=== PATIENT | female | born 1990 | race Caucasian/White ===

== ENCOUNTER 2021-01-03 15:37 | Emergency (ER) | payer OTHER ==
[2021-01-03] MEDS ORDERED: Bacitracin 1 PK ONE (16:37)
== END 2021-01-03 16:35 | disposition home or self-care (01) ==
LOC: BURERS 15:37
DX: S00.01XA Abrasion of scalp, initial encounter (principal); G40.909 Epilepsy, unspecified, not intractable, without status epilepticus; Z86.73 Personal history of transient ischemic attack (TIA), and cerebral infarction without residual deficits; W22.8XXA Striking against or struck by other objects, initial encounter
CPT/HCPCS: 70450